=== PATIENT | female | born 2000 | race Caucasian/White ===

== ENCOUNTER → 2023-12-31 | Outpatient (CLI) | payer MEDICAID | LOC: RAD 11:26 | DX: M25.551 Pain in right hip (principal); M25.561 Pain in right knee ==

== ENCOUNTER → 2024-10-30 | Outpatient (CLI) | payer SELFPAY ==
[2024-10-30 10:21] LABS: HEMATOCRIT 40.7 % (37.0-47.0); HEMOGLOBIN 13.2 g/dL (12.5-16.0); MEAN PLATELET VOLUME 8.7 fl (7.4-10.4); RED BLOOD COUNT 4.82 M/mm3 (4.10-5.30); WHITE BLOOD COUNT 11.3 K/mm3 (4.8-10.8)
[2024-10-30 10:35] LABS: PROTHROMBIN TIME 9.6 SECONDS (9.0-12.0)
== END ==
LOC: LAB 09:52
PROVIDERS: Family Medicine
DX: N92.4 Excessive bleeding in the premenopausal period (principal); R73.03 Prediabetes